=== PATIENT | male | born 1970 | race African-American/Black ===

== ENCOUNTER 2017-06-13 15:30 | Emergency (ER) | payer BC ==
[~2017-06-13] VITALS: Ht 182.8 cm; Wt 147.4 kg
[~2017-06-13 15:30] MED LIST: CYCLOBENZAPRINE10 MG PO; D-1000 185 MG-11 TAB PO; GLUCOPHAGE500 MG PO; GLUCTESTSTRIP; HYDROCODONE BIT1 T11 PO; KRILL OIL; LIPITOR20 MG PO; LISINOPRIL5 MG PO; MOTRIN800 MG PO; MULTIVITAMIN1 CTB; NORCO 5-325 TA1 EACH PO; NORFLEX100 MG PO; PREDNISONE10 MG PO; PREDNISONE20 M1 PO; PROBIOTIC FORMU1 CAP; PYCNOGENOL; STRIANT30 MG IM; TESTOSTERO200 MG/10 IM; TESTOSTERONE IJ; VITAMIN D
[2017-06-13 15:33] VITALS: BP 127/83
[2017-06-13] MEDS ORDERED: METFORMIN1000 MG PO (15:34)
[2017-06-13] MEDS ORDERED: NAPROSYN500 MG PO (16:07)
== END 2017-06-13 16:17 | disposition home or self-care (01) ==
LOC: ED 15:30
DX: M87.852 Other osteonecrosis, left femur (principal); I10 Essential (primary) hypertension; E11.9 Type 2 diabetes mellitus without complications; E78.5 Hyperlipidemia, unspecified; Z88.0 Allergy status to penicillin; Z79.84 Long term (current) use of oral hypoglycemic drugs; Z90.49 Acquired absence of other specified parts of digestive tract

== ENCOUNTER 2018-10-03 13:38 | Emergency (ER) | payer OTHER, BC ==
[~2018-10-03] VITALS: Ht 182.8 cm; Wt 159.9 kg
[~2018-10-03 13:38] MED LIST changes: +METFORMIN1000 MG PO; +NAPROSYN500 MG PO
[2018-10-03 14:56] LABS: BASO % 0.5 % (0.0-1.0); EOS # 0.1 10*3/uL (0.0-0.4); EOS % 0.6 % (1.0-4.0); HEMATOCRIT 49.8 % (42.0-52.0); LYMPH # 1.5 10*3/uL (1.3-4.4); LYMPH % 18.6 % (27.0-41.0); MEAN CELL VOLUME 88.3 fl (80.0-94.0); MEAN CORPUSCULAR HGB 28.4 pg (27.0-31.0); MEAN CORPUSCULAR HGB CONC 32.1 g/dl (33.0-37.0); MEAN PLATELET VOLUME 10.4 fl (9.6-12.3); MONO # 0.5 10*3/uL (0.1-1.0); MONO % 6.1 % (3.0-9.0); NEUT # 6.1 10*3/uL (2.3-7.9); PLATELET COUNT AUTOMATED 203 10*3/uL (130-400); RED BLOOD COUNT 5.64 10*6/uL (4.50-5.90); RED CELL DISTRI WIDTH 14.9 % (0-14.5); WHITE BLOOD COUNT 8.2 10*3/uL (4.8-10.8)
[2018-10-03 15:08] LABS: ACT PARTIAL THROMBO TIME 23.8 SECONDS (20.0-32.1)
[2018-10-03 15:12] LABS: ALBUMIN 3.9 gm/dl (3.1-4.5); ALKALINE PHOSPHATASE 41 U/L (45-117); BUN 12 mg/dl (7-24); CHLORIDE 105 mmol/L (98-107); CREATININE 1.12 mg/dL (0.70-1.30); POTASSIUM 4.2 mmol/L (3.5-5.1); SGOT/AST 39 IU/L (3-35); SGPT/ALT 49 U/L (12-78); SODIUM 139 mmol/L (136-145); TOTAL PROTEIN 7.1 gm/dL (6.4-8.2)
[2018-10-03 17:36] VITALS: BP 112/67
== END 2018-10-03 17:55 | disposition short-term general hospital (02) ==
LOC: ED 13:38
PROVIDERS: Family Medicine
DX: S76.111A Strain of right quadriceps muscle, fascia and tendon, initial encounter (principal); E78.5 Hyperlipidemia, unspecified; E11.9 Type 2 diabetes mellitus without complications; E66.9 Obesity, unspecified; Z90.49 Acquired absence of other specified parts of digestive tract; Z98.890 Other specified postprocedural states; Z87.891 Personal history of nicotine dependence; Z88.0 Allergy status to penicillin; Z79.899 Other long term (current) drug therapy; W10.8XXA Fall (on) (from) other stairs and steps, initial encounter; Y93.89 Activity, other specified; Y92.69 Other specified industrial and construction area as the place of occurrence of the external cause; Y99.9 Unspecified external cause status

== ENCOUNTER → 2019-09-12 | Outpatient (CLI) | payer BC ==
[2019-09-12 09:00] LABS: HEMATOCRIT 62.4 % (42.0-52.0)
== END | disposition home or self-care (01) ==
LOC: LAB 08:32
PROVIDERS: Internal Medicine Endocrinology, Diabetes & Metabolism
DX: D57.1 Sickle-cell disease without crisis (principal)

== ENCOUNTER 2020-02-19 20:38 | Emergency (ER) | payer BC ==
[~2020-02-19] VITALS: Ht 182.8 cm; Wt 145.1 kg
[2020-02-19] MEDS ORDERED: LISINOPRIL5 MG PO (21:09)
[2020-02-19] MEDS ORDERED: PHENTERMINE PO (21:09)
[2020-02-19] MEDS ORDERED: LIPITOR20 MG PO (21:10)
[2020-02-19 21:21] LABS: BASO # 0.1 10*3/uL (0.0-0.1); BASO % 0.3 % (0.0-1.0); EOS % 0.2 % (1.0-4.0); HEMATOCRIT 46.7 % (42.0-52.0); LYMPH # 1.7 10*3/uL (1.3-4.4); LYMPH % 11.4 % (27.0-41.0); MEAN CORPUSCULAR HGB 27.7 pg (27.0-31.0); MEAN CORPUSCULAR HGB CONC 31.9 g/dl (33.0-37.0); MEAN PLATELET VOLUME 10.1 fl (9.6-12.3); MONO # 1.5 10*3/uL (0.1-1.0); MONO % 10.1 % (3.0-9.0); NEUT # 11.5 10*3/uL (2.3-7.9); NEUT % 77.6 % (47.0-73.0); PLATELET COUNT AUTOMATED 177 10*3/uL (130-400); RED BLOOD COUNT 5.37 10*6/uL (4.50-5.90); RED CELL DISTRI WIDTH 14.3 % (0-14.5); WHITE BLOOD COUNT 14.8 10*3/uL (4.8-10.8)
[2020-02-19 21:40] LABS: ALBUMIN 3.7 gm/dl (3.1-4.5); ALKALINE PHOSPHATASE 42 U/L (45-117); BUN 9 mg/dl (7-24); CHLORIDE 103 mmol/L (98-107); CREATININE 0.94 mg/dL (0.70-1.30); POTASSIUM 3.7 mmol/L (3.5-5.1); SGOT/AST 129 IU/L (3-35); SGPT/ALT 49 U/L (12-78); SODIUM 137 mmol/L (136-145); TOTAL PROTEIN 7.5 gm/dL (6.4-8.2)
[2020-02-19 21:44] LABS: TROPONIN I < 0.015 ng/ml (<0.045)
[2020-02-20] MEDS ORDERED: LEVOFLOXACIN750 M2 PO (01:18)
[2020-02-20 01:20] VITALS: BP 153/75
[2020-02-21] MEDS ORDERED: ROSUVASTATIN CA40 MG PO (09:56)
[2020-02-21] MEDS ORDERED: TOPIRAMATE25 M2 PO (09:56)
[2020-02-21] MEDS ORDERED: TESTOSTERO200 MG/1 M IM (09:57)
== END 2020-02-20 01:44 | disposition home or self-care (01) ==
LOC: ED 20:38
PROVIDERS: Emergency Medicine
DX: L03.116 Cellulitis of left lower limb (principal); R07.89 Other chest pain; Z88.0 Allergy status to penicillin; Z79.899 Other long term (current) drug therapy

== ENCOUNTER 2020-02-20 12:42 | Inpatient (IN) | payer BC ==
[~2020-02-20] VITALS: Ht 182.9 cm; Wt 145.1 kg
[2020-02-20 08:20] VITALS: BP 129/80
[~2020-02-20 12:42] MED LIST changes: +LEVOFLOXACIN750 M2 PO; +PHENTERMINE PO
[2020-02-20 13:20] LABS: BASO % 0.2 % (0.0-1.0); EOS % 0.1 % (1.0-4.0); HEMATOCRIT 46.2 % (42.0-52.0); LYMPH % 5.2 % (27.0-41.0); MEAN CELL VOLUME 87.8 fl (80.0-94.0); MEAN CORPUSCULAR HGB 27.8 pg (27.0-31.0); MEAN CORPUSCULAR HGB CONC 31.6 g/dl (33.0-37.0); MEAN PLATELET VOLUME 10.7 fl (9.6-12.3); MONO % 5.1 % (3.0-9.0); NEUT # 16.7 10*3/uL (2.3-7.9); NEUT % 88.5 % (47.0-73.0); PLATELET COUNT AUTOMATED 171 10*3/uL (130-400); RED BLOOD COUNT 5.26 10*6/uL (4.50-5.90); RED CELL DISTRI WIDTH 14.3 % (0-14.5); WHITE BLOOD COUNT 18.8 10*3/uL (4.8-10.8)
[2020-02-20 13:30] VITALS: BP 126/78
[2020-02-20 13:37] LABS: ALBUMIN 3.5 gm/dl (3.1-4.5); ALKALINE PHOSPHATASE 45 U/L (45-117); BUN 7 mg/dl (7-24); CHLORIDE 102 mmol/L (98-107); CREATININE 0.96 mg/dL (0.70-1.30); POTASSIUM 3.8 mmol/L (3.5-5.1); SGOT/AST 113 IU/L (3-35); SGPT/ALT 50 U/L (12-78); SODIUM 136 mmol/L (136-145); TOTAL PROTEIN 7.8 gm/dL (6.4-8.2)
[2020-02-20 13:40] LABS: ACT PARTIAL THROMBO TIME 32.1 SECONDS (20.0-32.1); INTERNATIONAL NORM RATIO 1.1 (2.0-3.5)
--- NOTE | 2020-02-20 19:12 | NUR ---
Transfer of care from Terrance trejo,
--- NOTE | 2020-02-20 19:12 | NUR ---
CRITICAL LAB TROPONIN 0.166 DR COVINGTON NOTIFIED
[2020-02-20 19:28] VITALS: BP 111/77
--- NOTE | 2020-02-20 19:31 | NUR ---
Ekg done for for 1847 at this time.
--- NOTE | 2020-02-20 19:31 | NUR ---
In to see pt at this time.Pt states he is doing ok at this time.Pt has diminshed lung sounds at this time and 18 gauge in left fa which is clamped at this time.
--- NOTE | 2020-02-20 19:44 | NUR ---
Consult called to at this time.
--- NOTE | 2020-02-20 20:11 | NUR ---
updated on pt status at this time.
--- NOTE | 2020-02-20 20:15 | NUR ---
ware of heart rate into the 120s at this time.Aware of cardiology called at this time.States he will place medication orders at this time.
[2020-02-20 20:32] VITALS: BP 126/84
[2020-02-20 21:07] VITALS: BP 127/89
[2020-02-20 22:26] VITALS: BP 120/75
--- NOTE | 2020-02-20 23:19 | NUR ---
puja to irvin trejo
--- NOTE | 2020-02-20 23:20 | NUR ---
TRANSFER OF CARE FROM SHERMAN MCKEON. PT IS AWAKE ALERT AMBULATORY TO BATHROOM. GAIT STEADY. PT DENIES ANY CHEST PAIN AT THIS TIME MONITOR SINUS TACH AT 116. PULSE OX AT 99% WITH 02. CARLOS LIVINGSTON RN.
[2020-02-21 02:30] VITALS: BP 136/70
[2020-02-21 04:21] LABS: BASO # 0.1 10*3/uL (0.0-0.1); BASO % 0.2 % (0.0-1.0); EOS % 0.2 % (1.0-4.0); HEMATOCRIT 44.6 % (42.0-52.0); LYMPH # 1.2 10*3/uL (1.3-4.4); LYMPH % 5.8 % (27.0-41.0); MEAN CELL VOLUME 88.1 fl (80.0-94.0); MEAN CORPUSCULAR HGB 28.1 pg (27.0-31.0); MEAN CORPUSCULAR HGB CONC 31.8 g/dl (33.0-37.0); MEAN PLATELET VOLUME 10.3 fl (9.6-12.3); MONO # 1.5 10*3/uL (0.1-1.0); MONO % 6.9 % (3.0-9.0); NEUT # 18.4 10*3/uL (2.3-7.9); NEUT % 86.3 % (47.0-73.0); PLATELET COUNT AUTOMATED 185 10*3/uL (130-400); RED BLOOD COUNT 5.06 10*6/uL (4.50-5.90); RED CELL DISTRI WIDTH 14.4 % (0-14.5); WHITE BLOOD COUNT 21.3 10*3/uL (4.8-10.8)
[2020-02-21 04:43] LABS: ALBUMIN 3.2 gm/dl (3.1-4.5); BUN 8 mg/dl (7-24); CHLORIDE 101 mmol/L (98-107); CHOLESTEROL 98 mg/dL (<200); CREATININE 1.05 mg/dL (0.70-1.30); POTASSIUM 4.1 mmol/L (3.5-5.1); SGOT/AST 99 IU/L (3-35); SGPT/ALT 46 U/L (12-78); SODIUM 135 mmol/L (136-145); TRIGLYCERIDES 48 mg/dl (<150); VLDL CHOLESTEROL 10 mg/dL (6-40)
[2020-02-21 04:44] LABS: ALKALINE PHOSPHATASE 46 U/L (45-117); TOTAL PROTEIN 7.7 gm/dL (6.4-8.2)
[2020-02-21 04:48] LABS: FREE T4 1.48 ng/dl (0.76-1.46); HDL CHOLESTEROL 62 mg/dl (40-60); LDL CHOLESTEROL 26 mg/dL (9-159)
--- NOTE | 2020-02-21 05:34 | NUR ---
SPOKE WITH DR DUDLEY. WHO STATES KEEP THE PATIENT ON HEPRIN DRIP. CALL WITH ANY C/O CHEST PAIN. DR DUDLEY WILL SEE IN AM. CARLOS LIVINGSTON RN.
[2020-02-21 06:11] VITALS: BP 105/76
[2020-02-21 06:39] LABS: VITAMIN D, 25-HYDROXY 102.8 ng/mL (30-100)
[2020-02-21 07:38] VITALS: BP 108/78
--- NOTE | 2020-02-21 07:38 | NUR ---
CRITICAL TROP CALL [phone], DR OCTAVIA EWING.
--- NOTE | 2020-02-21 07:39 | NUR ---
PT RESTING WITH NO COMPLAINTS. REPORTS SLIGHT SOB THAT IS UNCHANGED, POX 98% RA. DR DUDLEY NOTIFIED OF INCREASING TROP, NO NEW ORDERS OBTAINED.
--- NOTE | 2020-02-21 08:20 | NUR ---
A 49, admitted to 5E, under the services of JULIANNA Woo DO with a diagnosis of SEPSIS PNEUMONIA. Chief complaint is CHEST PAIN AND SHOIRTNESS OF BREATH. Patient arrived via bed from ER. Monitor applied. Initial assessment completed. Vital signs taken and recorded. JULIANNA WOO DO notified of admission to the unit. Orders received. See assessment for past medical history, medications and allergies. Patient and/or family oriented to unit. [facility] visitation policy reviewed. Clothing/patient valuable form completed. HERMELINDO RAYMOND
--- NOTE | 2020-02-21 09:30 | NUR ---
HOME MEDICATION RECONCILED. DR WEN NOTIFIED.
[2020-02-21] MEDS ORDERED: ROSUVASTATIN CA40 MG PO (09:56)
[2020-02-21] MEDS ORDERED: TOPIRAMATE25 M2 PO (09:56)
[2020-02-21] MEDS ORDERED: TESTOSTERO200 MG/1 M IM (09:57)
--- NOTE | 2020-02-21 10:35 | NUR ---
Insurance Compliance Analyst SPOKE WITH PATIENTS VIA PHONE CALL. Patient states lives at HOME with . There are 14 steps in the home. Physician: DR. THOMPSON [facility]: [facility]: NONE Patient's level of ADLs: INDEPENDENT Patient has working utilities: YES DME: CANE, CPAP Follow-up physician's appointment after d/c: WILL BE MADE BY RN HOSPITALIST COORDINATOR Does patient want to access PORTAL?: NO Discharge plan : APPELLATE LAW CLERK ATTEMPTED TO REACH PATIENT VIA PHONE CALL, NO ANSWER. APPELLATE LAW CLERK REACHED OUT TO PATIENTS , WILY MAHARAJ. SHE ANSWERED ALL QUESTIONS. MERCEDES RESIDES AT HOME WITH HER. PATIENT IS INDEPENDENT WITH ADLS/IADLS. ISABELA USES A CANE WHEN NEEDED DUE TO A BAD HIP. PATIENT DOES USE A CPAP AT NIGHT. PER PATIENT WILL RETURN HOME UPON DISCHARGE AND SHE WILL TRANSPORT. CASE MANAGEMENT TO FOLLOW. . TARA PEDERSEN
[2020-02-21 12:00] VITALS: BP 116/78
--- NOTE | 2020-02-21 14:37 | NUR ---
NOTIFIED DR WOLF PT WAS UNCOOPERATIVE AND REFUSING BIPAP. PLACED PT ON 6LNC. ATTEMPTED TO REORIENT AND ENCOURAGED PT TO STAY IN BED. WILL CONTINUE TO MONITOR. NOTIFED HER AT THIS TIME I LEFT A MESSAGE FOR A RETURN CALL ON SONIA RUANO'S VOICEMAIL BUT WILL ATTEMPT AGAIN.
[2020-02-21 16:00] VITALS: BP 110/88
--- NOTE | 2020-02-21 16:20 | NUR ---
IV started right forearm with #22 protective cath after 1 attempts. Site prepped with Chloroprep. Sterile dressing applied. Patient tolerated procedure well. HERMELINDO RAYMOND
--- NOTE | 2020-02-21 17:02 | NUR ---
INCREASED HEP GTT INFUSING AT 23.2 ML/HR AND/OR 16 UNITS/KG/HR PER PROTOCOL RATE VERIFIED WITH PHARMACIST AMERICA Nation RN.
--- NOTE | 2020-02-21 17:43 | NUR ---
PT REQUESTING NAPROXEN FOR PAIN. NOTIFIED DR WOLF.
--- NOTE | 2020-02-21 19:43 | NUR ---
SPOKE WITH DR. DUDLEY AT THIS TIME. NOTIFIED HIM OF PATIENTS TROPONIN AND NOTIFIED HIM OF PATIENTS HR AND THAT HE JUST DOESN'T FEEL GOOD. ORDERS RECEIVED FOR PATIENT TO HAVE 81MG OF ASA DAILY, D/C ASPIRIN 650MG. LOPRESSOR IV 5MG NOW IF SYSTOLIC ABOVE 100. NAPROXEN LATER ON TONIGHT FOR PAIN. PATIENT ORDERED STRICT BEDREST PER DR. DUDLEY WELL.
[2020-02-21 20:00] VITALS: BP 110/70; BP 98/63
--- NOTE | 2020-02-21 20:30 | NUR ---
EXPLAINED TO PATIENT THAT HE WAS SUPPOSED TO BE ON BED REST PER DR SAMPSON AND THE REASONING WHY. PATIENT VERBALIZED UNDERSTANDING. HEPARIN INFUSING.
--- NOTE | 2020-02-21 22:41 | NUR ---
NOTIFIED DR. CARR OF NO CHANGE IN PATIENTS PTT IN 3 CHANGES OF HEPARIN. NOTIFIED HER THAT WE CHECK THE PTT EVERY 6 HOURS. SHE STATED THIS IS FINE AND TO GO AHEAD AND FOLLOW THE POLICY AND INCREASE IN BY ANOTHER 2 UNITS/KG/HR. NOTIFIED HER THAT HE IS ALREADY ON 16 UNITS/KG/HR
--- NOTE | 2020-02-21 22:45 | NUR ---
PATIENT INCREASED TO 18 UNITS/KG/HR AT THIS TIME. VERIFIED BY CHACHA KIM RN. PATIENT CONTINUES TO DENY CHEST PAIN AT THIS TIME. REMINDED PATIENT OF BETREST ORDER. PATIENT VERBALIZED UNDERSTANDING
[2020-02-22] VITALS: BP 110/60
--- NOTE | 2020-02-22 01:14 | NUR ---
NOTIFIED DR. CARR OF PATIENTS CRITICAL TROPONIN
--- NOTE | 2020-02-22 02:32 | NUR ---
24 HR chart check completed.
--- NOTE | 2020-02-22 04:23 | NUR ---
PATIENT SLEEPING, SNORING RESPIRATIONS. HEPARIN INFUSING. CALL LIGHT WITHIN REACH, WILL MONITOR
--- NOTE | 2020-02-22 04:46 | NUR ---
NOTIFIED DR. FUNES AT THIS TIME OF PATIENTS HAVING A 19 BEAT RUN OF VTACH. PATIENT IS ASLEEP AND ASYMTOMATIC UP IN CHAIR. SHE STATED IF IT HAPPENS AGAIN WE WILL LET THE ANESTHETIST KNOW
--- NOTE | 2020-02-22 05:12 | NUR ---
PATIENT STATES HE FEELS MUCH BETTER THIS MORNING. STATES HE GOT ABOUT 4 HOURS OF SLEEP. HEPARIN CONTINUES TO INFUSE. PATIENT IN NO DISTRESS, WILL CONTINUE TO MONITOR
[2020-02-22 06:00] LABS: ALKALINE PHOSPHATASE 52 U/L (45-117); BUN 14 mg/dl (7-24); CHLORIDE 102 mmol/L (98-107); CREATININE 0.98 mg/dL (0.70-1.30); POTASSIUM 3.5 mmol/L (3.5-5.1); SGOT/AST 96 IU/L (3-35); SGPT/ALT 46 U/L (12-78); SODIUM 137 mmol/L (136-145); TOTAL PROTEIN 7.3 gm/dL (6.4-8.2)
[2020-02-22 06:08] LABS: BASO % 0.2 % (0.0-1.0); EOS % 0.2 % (1.0-4.0); HEMATOCRIT 44.3 % (42.0-52.0); LYMPH # 1.5 10*3/uL (1.3-4.4); LYMPH % 8.1 % (27.0-41.0); MEAN CELL VOLUME 85.7 fl (80.0-94.0); MEAN CORPUSCULAR HGB 27.1 pg (27.0-31.0); MEAN CORPUSCULAR HGB CONC 31.6 g/dl (33.0-37.0); MONO # 1.2 10*3/uL (0.1-1.0); MONO % 6.6 % (3.0-9.0); NEUT # 15.5 10*3/uL (2.3-7.9); PLATELET COUNT AUTOMATED 230 10*3/uL (130-400); RED BLOOD COUNT 5.17 10*6/uL (4.50-5.90); WHITE BLOOD COUNT 18.4 10*3/uL (4.8-10.8)
[2020-02-22 06:21] LABS: ALBUMIN 2.8 gm/dl (3.1-4.5)
[2020-02-22 08:00] VITALS: BP 104/73
--- NOTE | 2020-02-22 08:09 | NUR ---
NOTIFIED DR WOLF OF TROPONIN 4.050.
[2020-02-22] MEDS ORDERED: NAPROSYN500 MG PO (08:18)
--- NOTE | 2020-02-22 10:55 | NUR ---
NOTIFIED DR WOLF OF TROPONIN 3.210.
[2020-02-22 12:00] VITALS: BP 100/50
--- NOTE | 2020-02-22 13:35 | NUR ---
NOTIFIED DR WOLF OF TROPONIN 2.850.
[2020-02-22 16:00] VITALS: BP 96/75
[2020-02-22 20:00] VITALS: BP 106/67
--- NOTE | 2020-02-22 22:30 | NUR ---
ONE TIME DOSE OF NAPROXEN GIVEN AT THIS TIME FOR HIP PAIN RATING AN 8/10. CALL LIGHT IS WITHIN REACH, WILL MONITOR EFFECT.
--- NOTE | 2020-02-22 22:57 | NUR ---
CONTACTED DR. CALDERÓN FOR PATIENT C/O HIP PAIN RATING AN 09/28. SEE NEW ORDER.
--- NOTE | 2020-02-22 23:00 | NUR ---
ASSUMED CARE OF PATIENT. PATIENT IS RESTING IN CHAIR WITH EASY AND REGULAR RESPERS. ASSESSMENT IS COMPLETE WITH NO S/S OF DISTRESS NOTED AT THIS TIME. PATIENT C/O HIP PAIN RATING AN 8/10, AND IS REQUESTING NAPROXEN AT THIS TIME. CALL LIGHT IS WITHIN REACH, SEE INTERVENTIONS.
--- NOTE | 2020-02-22 23:05 | NUR ---
CONTACTED DR. CALDERÓN FOR NAPROXEN FOR HIP PAIN RATING AN 09/28. SEE NEW ORDER.
--- NOTE | 2020-02-22 23:30 | NUR ---
ONE TIME NAPROXEN GIVEN AT THIS TIME FOR HIP PAIN. CALL LIGHT IS WITHIN REACH, WILL MONITOR EFFECT OF MEDICATION.
[2020-02-23] VITALS: BP 101/70
--- NOTE | 2020-02-23 | NUR ---
CONSENT FOR TRANFER OBTAINED FROM PATIENT.
--- NOTE | 2020-02-23 00:30 | NUR ---
ONE TIME NAPROXEN SEEMS EFFECTIVE. PATIENT IS SLEEPING. RESPERS EASY AND REGULAR.
--- NOTE | 2020-02-23 04:57 | NUR ---
CHART CHECK COMPLETE.
--- NOTE | 2020-02-23 06:48 | NUR ---
IV started right hand with #22 angiocath. The IV site was prepped with Chloraprep. Heparin lock attached. IV AZITHROMYCIN RUNNING AT THIS TIME. Sterile dressing applied. Patient tolerated precedure well. Procedure performed according to [facility] policy & procedure. BUCKY CONTRERAS
--- NOTE | 2020-02-23 06:50 | NUR ---
AZITHROMYCIN RETIMED D/T NO SECOND IV SITE FROM HEPARIN GTT. AZITHROMYCIN RUNNING AT THIS TIME. CALL LIGHT IS WITHIN REACH. PATIENT UPDATED ON PLAN OF CARE WELL.
[2020-02-23 08:00] VITALS: BP 100/67
--- NOTE | 2020-02-23 09:15 | NUR ---
SPEECH PATHOLOGY Recived orders for bedside swallow evaluation to assess for possible aspiration. This SPECK DYER completed chart review, called 5E, and spoke to RN, Kathy, who informed this SPECK DYER that pt was an NSTEMI and was going to be transferred. Unable to complete evaluation at this time. Thank you for this referral. MIRANDA CHERRY M.A. [facility]-SPECK DYER
[2020-02-23] MEDS ORDERED: METOPROLOL TART50 M1 PO (10:17)
[2020-02-23] MEDS ORDERED: HEPARIN10000 UNIT IM (10:17)
[2020-02-23 12:00] VITALS: BP 109/64
--- NOTE | 2020-02-23 13:25 | NUR ---
Dr. Mahmood states that pt can be fed and NPO past midnight. States he is going to have procedure tomorrow now instead of today.
--- NOTE | 2020-02-23 14:55 | NUR ---
Spoke with Dr. Blake regarding pt c/o hip pain. Pt was offered ordered PRN tylenol but pt state he has tried that and it doesn't work for his pain. Pt states he takes naproxen.
--- NOTE | 2020-02-23 15:45 | NUR ---
Pt declined morphine. States he doesn't want to take something that could be habit forming.
--- NOTE | 2020-02-23 15:57 | NUR ---
Aptt was 45.6 needs increased by 2 units/kg/hr. Pt is 189 kg. Increased from 2010 units to 2388 units per hour per heparin protocol. Verified by Kathy Hannon and Sendy Young.
[2020-02-23 16:00] VITALS: BP 99/65
[2020-02-23 20:00] VITALS: BP 103/70
--- NOTE | 2020-02-23 20:39 | NUR ---
24 HR chart check completed.
--- NOTE | 2020-02-23 21:00 | NUR ---
SITTING IN RECLINER WITH NO ACUTE DISTRESS NOTED. RESPIRATIONS EASY. LUNGS DIMINISHED, CLEAR. PULSE OX 95% RA. DENIES CHEST PAIN. AWARE OF NPO STATUS AFTER MIDNIGHT FOR CARDIAC CATH IN AM. HEPARIN INFUSING PER ORDER. CALL LIGHT WITHIN REACH. NO VOICED COMPLAINTS
--- NOTE | 2020-02-23 22:00 | NUR ---
C/O LEFT HIP PAIN, CHRONIC IN NATURE WHICH PATIENT NORMALLY TAKES NAPROXEN FOR. NAPROXEN ON HOLD. PATIENT STATES TYLENOL NOT EFFECTIVE AND DECLINES TO TAKE MORPHINE. DR Gutierrez JEFF CONACTED AND INFORMED PATIENT REQUESTING PAIN MEDS.
--- NOTE | 2020-02-23 22:00 | NUR ---
DECLINED SS COVERAGE FOR BSG 165. WILL RECHECK IN AM
--- NOTE | 2020-02-23 23:00 | NUR ---
EXPLAINED TO PATIENT VOLTAREN GEL ORDERED. PATIENT STATES HE HAS TRIED IN THE PAST AND IT WAS INEFFECTIVE
[2020-02-24] VITALS: BP 119/87
--- NOTE | 2020-02-24 00:30 | NUR ---
SLEEPING IN RECLINER. RESPIRATIONS EASY. VSS. CALL LIGHT WITHIN REACH
--- NOTE | 2020-02-24 04:10 | NUR ---
REMAINS IN RECLINER SLEEPING
--- NOTE | 2020-02-24 06:00 | NUR ---
SLEPT THROUGHOUT NIGHT WITH NO DISTRESS NOTED. RESPIRATIONS EASY. NPO FOR HEART CATH. HEPARIN INFUSING PER ORDER. CALL LIGHT WITHIN REACH. NO VOICED COMPLAINTS
--- NOTE | 2020-02-24 06:36 | NUR ---
[facility] CALLED. STATES TO HAVE PT THERE BY 1300 (1PM) TODAY.
--- NOTE | 2020-02-24 07:30 | NUR ---
PTT THIS AM 47.8, NO CHANGE IN RATE OF HEPARIN DRIP, PER POLICY.
[2020-02-24 08:00] VITALS: BP 108/72
--- NOTE | 2020-02-24 08:47 | NUR ---
SPEECH PATHOLOGY Pt was not transferred yesterday as expected; however, swallow evaluation cannot be done this date as, per chart, the pt is scheduled for a heart cath and must remain NPO. Thank you. MIRANDA CHERRY M.A. [facility] ANALYST
--- NOTE | 2020-02-24 11:34 | NUR ---
PREPARING PATIENT FOR TRANSFER TO [facility] FOR CARDIAC CATHETERIZATION. REPORT CALLED TO RECEIVING NURSE AT [employer] MELT SUPERVISOR. SYSTEMS PROGRAMMER TIME IS 1130 BY AMBULANCE FOR THE PROCEDURE AT 1PM TODAY.
--- NOTE | 2020-02-24 12:02 | NUR ---
PATIENT TRANSFERRED TO [facility] BY [facility] AT THIS TIME.
== END 2020-02-24 12:02 | disposition other institution (70) | DRG 871 ==
LOC: ED 12:42 → EDHOLD 14:34 → 5E 14:34 → EDHOLD 15:14 → 5E 21:06 → EDHOLD 21:12 → 5E 02-21 07:28
PROVIDERS: Emergency Medicine; Registered Nurse; Student in an Organized Health Care Education/Training Program; ADMIT Internal Medicine; ATTEND Internal Medicine
DX: A41.9 Sepsis, unspecified organism (principal); J18.9 Pneumonia, unspecified organism; J96.01 Acute respiratory failure with hypoxia; I21.4 Non-ST elevation (NSTEMI) myocardial infarction; Z68.41 Body mass index [BMI] 40.0-44.9, adult; R65.20 Severe sepsis without septic shock; E11.69 Type 2 diabetes mellitus with other specified complication; E78.5 Hyperlipidemia, unspecified; E78.00 Pure hypercholesterolemia, unspecified; E66.9 Obesity, unspecified; E11.65 Type 2 diabetes mellitus with hyperglycemia; E56.9 Vitamin deficiency, unspecified; I10 Essential (primary) hypertension; M94.0 Chondrocostal junction syndrome [Tietze]; R74.01 Elevation of levels of liver transaminase levels; Z86.16 Personal history of COVID-19; Z88.0 Allergy status to penicillin; Z87.891 Personal history of nicotine dependence; Z79.84 Long term (current) use of oral hypoglycemic drugs; Z79.899 Other long term (current) drug therapy

== ENCOUNTER → 2021-07-15 | Outpatient (CLI) | payer OTHER ==
[~2021-07-15] MED LIST changes: +CEFTRIAXON2 GM/50 ML IV; +FARXIGA10 M1 PO; +HEPARIN10000 UNIT IM; +METFORMIN XR500 MG PO; +METOPROLOL TART50 M1 PO; +NATURE'S BLEND F1 MG PO; +PHARMASSURE V500 MCG PO; +PHENTERMINE HYD15 MG PO; +ROSUVASTATIN CA40 MG PO; +TESTOSTERO200 MG/1 M IM; +TOPIRAMATE25 M2 PO; +VITAMIN D2 1.25MG(50; +ZETIA10 MG PO
== END | disposition home or self-care (01) ==
LOC: WOUNDCARE 02:10
PROVIDERS: ATTEND Podiatrist Foot & Ankle Surgery
DX: E11.622 Type 2 diabetes mellitus with other skin ulcer (principal); L97.211 Non-pressure chronic ulcer of right calf limited to breakdown of skin; S81.801A Unspecified open wound, right lower leg, initial encounter; I10 Essential (primary) hypertension; I25.2 Old myocardial infarction; I87.2 Venous insufficiency (chronic) (peripheral); R60.9 Edema, unspecified; E66.9 Obesity, unspecified; Z87.891 Personal history of nicotine dependence; Z90.49 Acquired absence of other specified parts of digestive tract; X58.XXXA Exposure to other specified factors, initial encounter; Y93.89 Activity, other specified; Y92.89 Other specified places as the place of occurrence of the external cause; Y99.8 Other external cause status